=== PATIENT | male | born 1995 | race Caucasian/White ===

== ENCOUNTER 2022-04-16 12:59 | Emergency (ER) | payer OTHER, SELFPAY ==
[2022-04-16 13:01] VITALS: BP 166/82; PULSE 116; RESP 16; TEMP 36.6; O2SAT 98; BMI 24.3
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
[2022-04-16 14:00] VITALS: PULSE 74; RESP 17; O2SAT 98
[2022-04-16 15:01] VITALS: PULSE 79; RESP 16; O2SAT 99
[2022-04-16] MEDS: Lidocaine 1% (20 ml mdv) 20 ML Vial INFILT (15:02)
== END 2022-04-16 15:03 | disposition home or self-care (01) ==
PROVIDERS: Emergency Provider Emergency Medicine; PCP Student in an Organized Health Care Education/Training Program; Visit Provider Emergency Medicine
DX: S61.012A Laceration without foreign body of left thumb without damage to nail, initial encounter (principal); W26.8XXA Contact with other sharp object(s), not elsewhere classified, initial encounter
CPT/HCPCS: 12001; 99283